=== PATIENT | female | born 1980 | race Hispanic/Latino ===

== ENCOUNTER 2017-07-18 07:21 | Day surgery (SDC) | payer SELFPAY ==
[~2017-07-18] VITALS: Ht 160 cm; Wt 67.1 kg
[2017-07-18] MEDS ORDERED: PERCOCET1 TA2 PO (11:33)
[2017-07-18 13:07] VITALS: BP 134/72
== END 2017-07-18 13:15 | disposition home or self-care (01) | DRG 419 ==
LOC: ORM 07:21
PROVIDERS: ATTEND Surgery
PROC: 0FT44ZZ Resection of Gallbladder, Percutaneous Endoscopic Approach (ICD-10-PCS; principal; 2017-07-18)
PROC: BF001ZZ Plain Radiography of Bile Ducts using Low Osmolar Contrast (ICD-10-PCS; 2017-07-18)
DX: K81.1 Chronic cholecystitis (principal)
CPT/HCPCS: J2710; Q9967

== ENCOUNTER 2017-07-21 09:48 | Emergency (ER) | payer SELFPAY ==
[~2017-07-21] VITALS: Ht 160 cm; Wt 65.9 kg
[~2017-07-21 09:48] MED LIST: PERCOCET1 TA2 PO
[2017-07-21 10:39] LABS: IMMATURE GRANULOCYTES 0.5 % (0.0-1.0); MEAN CELL VOLUME 89.3 fL CALC (80.0-100.0); MEAN CORPUSCULAR HGB 30.4 pG CALC (26.0-32.0); MEAN CORPUSCULAR HGB CONC 34.1 g/L CALC (32.0-36.0); NEUT# 7.7 thou/uL (2.00-7.15); RED BLOOD COUNT 4.47 mill/uL (4.20-5.60)
[2017-07-21 10:40] LABS: HEMATOCRIT 39.9 % (37.0-47.0); HEMOGLOBIN 13.6 g/dl (12.0-16.0)
[2017-07-21 11:25] LABS: ALBUMIN 3.9 g/dL (3.2-5.0); ANION GAP 17 (6-22 (CALC)); BILIRUBIN, TOTAL 0.7 mg/dL (0.0-1.4); BUN 9 mg/dL (7-17); BUN/CREATININE RATIO 15 (12-20 (CALC)); CARBON DIOXIDE 26 mmol/l (22-30); CHLORIDE 101 mmol/l (95-108); CREATININE 0.6 mg/dL (0.5-1.0); GFR > 60 ML/MIN (>=60 (CALC)); GFR FOR AFR.AMER. > 60 ML/MIN (>=60 (CALC)); POTASSIUM 3.9 mmol/l (3.5-5.1); SGOT/AST 33 u/l (14-36); SGPT/ALT 56 u/l (9-52); SODIUM 140 mmol/l (137-146); TOTAL PROTEIN 7.3 g/dL (6.3-8.2)
[2017-07-21 11:26] LABS: ALKALINE PHOSPHATASE 91 u/l (38-126)
[2017-07-21 11:33] LABS: URINE BILIRUBIN - DIPSTICK NEGATIVE (NEGATIVE); URINE BLOOD DIPSTICK MODERATE (NEGATIVE); URINE COLOR YELLOW; URINE GLUCOSE - DIPSTICK NEGATIVE (NEGATIVE); URINE KETONE >=80 mg/dL (NEGATIVE); URINE LEUK ESTERASE NEGATIVE (NEGATIVE); URINE NITRITE - DIPSTICK NEGATIVE (Negative); URINE PH 5.5 (4.5-8.0); URINE PROTEIN - DIPSTICK NEGATIVE (NEG-TRACE); URINE SPECIFIC GRAVITY 1.025
[2017-07-21 11:36] LABS: URINE CLARITY CLEAR
[2017-07-21 12:00] LABS: URINE BACTERIA FEW hpf; URINE SQUAMOUS EPITHELIAL CELL FEW EPI/hpf (0-FEW)
[2017-07-21] MEDS ORDERED: ZOFRAN ODT4 MG PO (12:25)
[2017-07-21 12:43] VITALS: BP 118/69
== END 2017-07-21 12:39 | disposition home or self-care (01) | DRG 149 ==
LOC: ED 09:48
PROVIDERS: Emergency Medicine
DX: R42 Dizziness and giddiness (principal); R11.2 Nausea with vomiting, unspecified; T50.995A Adverse effect of other drugs, medicaments and biological substances, initial encounter; Y92.009 Unspecified place in unspecified non-institutional (private) residence as the place of occurrence of the external cause; R53.1 Weakness; Z98.890 Other specified postprocedural states